=== PATIENT | female | born 1945 | race African-American/Black ===

== ENCOUNTER → 2016-07-09 | Outpatient (CLI) | payer MEDICARE, OTHER ==
[~2016-07-09] MED LIST: ALBUTEROL 0.5ML INH; ALBUTEROL20 ml INH; AMLACTIN400 GM TOP; AMLODIPINE BESYL5 MG PO; ASPIRIN81 M2 PO; BACLOFEN10 MG PO; CALCIUM 5001 TAB PO; CLARITIN10 M2 PO; DIFLUCAN100 MG PO; DITROPAN5 MG; ELMIRON100 MG PO; FLONASE ALLERG9.9 ML; LIDOCREAM5 GM TOP; LINZESS145 MCG PO; LIORESAL10 MG PO; LOSARTAN POTASS25 MG PO; LYRICA100 MG PO; MELOXICAM15 MG PO; MONTELUKAST SOD10 MG PO; NAPROSYN500 MG PO; NEURONTIN100 MG PO; PRAVASTATIN SOD40 MG PO; PREMARIN VAG CR45 GM MC; PROTONIX PO; PYRIDIUM100 MG PO; SIMVASTATIN10 MG PO; SYMBICORT INH; TESSALON PERLE100 M1; VITAMIN B122500 MCG PO
--- NOTE | ~2016-07-09 | CT57 ---
[facility] A Service of [facility] RADIOLOGY TEXT RESULTS PATIENT: KUN RUBIN LOCATION: [facility] : 49 UNIT #: [id number] AGE: [address]: Karen Spivey SEX: F ORDER DR: [id number] [facility] [address]. [place], [place] [address] [id number] O MR#: [id number] Acc #: [id number] NAME: KUN RUBIN : 1945 SEX: F STUDY DATE/TIME: 07/09/2016 12:31 UNIT: [facility] ROOM: STUDY DESCRIPTION: CT Chest Wo Cont Attending Physician: Karen Spivey A.P.R.N. Ordering Physician: Karen Sipvey A.P.R.N. Primary Care Physician: Jose Urban M.D. MEDICAL IMAGING REPORT This report is preliminary unless electronic signature is present EXAM High-resolution chest CT. INDICATIONS 70-year-old female with history of difficulty breathing, lung nodule. TECHNIQUE CT chest performed without contrast. Selected HRCT imaging obtained. This CT exam was performed with one or more of the following radiation dose reduction techniques: automatic exposure control, adjustment of mA and/or kV according to patient size, and iterative reconstruction. COMPARISON Comparison with 11/22/2014. FINDINGS Stable scarring in the lung apices. Emphysema. Scattered granulomatous calcifications. No suspicious pulmonary nodule. Selected HRCT imaging demonstrates no evidence of bronchiectasis, diffuse infiltrative, lung disease or honeycombing. Calcified mediastinal and hilar lymph nodes. No pleural effusion. Limited imaging of the upper abdomen is unremarkable. The bone windows are unremarkable. IMPRESSION Stable exam. Emphysema and scattered areas of scarring. Dictated by... Valdemar Carreon M.D. THIS IS AN ELECTRONICALLY VERIFIED REPORT Valdemar Carreon M.D. at 07/11/2016 8:37 AM ARS/gz [facility] A Service of [facility] RADIOLOGY TEXT RESULTS PATIENT: KUN RUBIN LOCATION: [facility] #: [id number] : [birth year] UNIT #: [id number] AGE: [address]: Karen Spivey SEX: F ORDER DR: TD: 07/10/2016 14:02 JOB #: [id number] MEDICAL IMAGING REPORT Page 1 of 1 COPY
== END | disposition home or self-care (01) ==
LOC: CCAT 12:11
DX: R93.8 Abnormal findings on diagnostic imaging of other specified body structures (principal); J43.9 Emphysema, unspecified; J98.4 Other disorders of lung
CPT/HCPCS: 71250

== ENCOUNTER → 2016-08-02 | Day surgery (SDC) | payer MEDICARE, OTHER ==
--- NOTE | ~2016-08-02 | OR ---
Unit #: [id number] #: [id number] Patient: KUN RUBIN [id number] [address] [address] [id number] O MR#: [id number] NAME: KUN RUBIN ROOM: Date of Procedure: 08/02/2016 Admission Date: 08/02/2016 Surgeon: Walker Oshea M.D. : 1945 Attending Physician: Walker Oshea M.D. Referring Physician: Walker Oshea M.D. Primary Care Physician: Jose Urban M.D. OPERATIVE REPORT PREOPERATIVE DIAGNOSIS Interstitial cystitis. POSTOPERATIVE DIAGNOSIS Interstitial cystitis. PROCEDURE PERFORMED Cystoscopy, hydrodistention, Clorpactin instillation. ANESTHESIA General. DESCRIPTION OF PROCEDURE After informed consent, she was taken to the operating room, placed under general anesthetic, and positioned in lithotomy. Her vagina and perineum were prepped and draped in the usual sterile fashion. Cystoscopy was performed. Bladder had normal appearance. There were no tumors, no stones, no diverticula. The bladder was distended on three occasions. The volumes obtained were 500 mL, 550 mL, and 600 mL respectively. Repeat inspection showed no bladder injury. There were some glomerulations, but no ulcerations. A catheter was placed to drainage and 1 L of Clorpactin was instilled into the bladder through the catheter over multiple force. The catheter was drained. The bladder was drained. Repeat inspection showed no injury to the bladder. The bladder was irrigated out with water and then lidocaine jelly was placed inside the urethra and bladder for anesthetic. She tolerated procedure well. She will be discharged home and returned to see me as an outpatient. Dictated by... Rusty Bermeo/nel TD: 08/03/2016 03:07 JOB #: [id number] Unit #: [id number] #: [id number] Patient: KUN RUBIN OPERATIVE REPORT Page 1 of 1 X Walker Oshea MD X PROCEDURE OPERATIVE NOTE
--- NOTE | ~2016-08-02 | EKG ---
PATIENT: KUN RUBIN UNIT #: [id number] Ventricular Rate: 48 BPM Atrial Rate: 48 BPM P-R Interval: 128 ms QRS Duration: 66 ms Q-T Interval: 456 ms QTC Calculation(Bezet): 407 ms Calculated R [place]: -39 degrees Calculated T [place]: 74 degrees Diagnosis Line: Marked sinus bradycardia Diagnosis Line: Left axis deviation Diagnosis Line: Abnormal ECG Diagnosis Line: When compared with ECG of 26-DEC-2015 13:01, Diagnosis Line: No significant change was found Diagnosis Line: Confirmed by GARFIELD MARLOW MD ([id number]) on Diagnosis Line: 08/03/2016 4:47:51 PM INTERPRETING MD: GAGANDEEP
[2016-08-02 07:59] LABS: URINE SOURCE CLEAN CATCH
[2016-08-02 08:14] LABS: URINE APPEARANCE CLEAR; URINE BLOOD NEG (NEG); URINE GLUCOSE NORM (NORM); URINE KETONE NEG (NEG); URINE LEUKOCYTE ESTERASE NEG (NEG); URINE PROTEIN 1+ (NEG); URINE SPECIFIC GRAVITY 1.015 (1.003-1.035); URINE UROBILINOGEN 8 MG/DL (NORM)
[2016-08-02 08:27] LABS: URINE BILIRUBIN NEG (NEG); URINE COLOR ORANGE
[2016-08-02 08:28] LABS: URINE NITRATE POS (NEG)
[2016-08-02 08:29] LABS: CULTURE INDICATED? NO; URINE BACTERIA AUWI NEG (NEGATIVE); URINE SQUAMOUS EPITHELIAL CELL OCCAS /[HPF]
[2016-08-02 09:14] LABS: CALCIUM SERUM 9.1 mg/dL (8.4-10.2); CREATININE SERUM 0.7 mg/dL (0.6-1.4); GLOM FILT RATE Estimated 103.2 mL/min (>60); POTASSIUM 3.5 mmol/L (3.5-5.1)
== END | disposition home or self-care (01) ==
LOC: CSUR 07:24
PROVIDERS: Urology
DX: N30.10 Interstitial cystitis (chronic) without hematuria (principal); I25.10 Atherosclerotic heart disease of native coronary artery without angina pectoris; I73.9 Peripheral vascular disease, unspecified; G57.33 Lesion of lateral popliteal nerve, bilateral lower limbs; R73.03 Prediabetes; K21.9 Gastro-esophageal reflux disease without esophagitis; J43.9 Emphysema, unspecified; M19.90 Unspecified osteoarthritis, unspecified site; Z87.440 Personal history of urinary (tract) infections; Z86.73 Personal history of transient ischemic attack (TIA), and cerebral infarction without residual deficits; Z88.5 Allergy status to narcotic agent; Z88.6 Allergy status to analgesic agent; Z88.8 Allergy status to other drugs, medicaments and biological substances; Z98.51 Tubal ligation status; Z98.890 Other specified postprocedural states
CPT/HCPCS: 80048; 81003; 93005; J1170; J1885; J1956; J2250; J3010